=== PATIENT | female | born 1990 | race Caucasian/White ===

== ENCOUNTER 2020-11-12 15:31 | Emergency (ER) | payer OTHER, SELFPAY ==
--- NOTE | ~2020-11-12 | CT_ITS ---
EXAMINATION: CT abdomen pelvis w con DATE: 11/12/2020 18:02 INDICATION: Abdominal pain and diarrhea for 4 weeks TECHNIQUE: Computed tomography (CT) of the abdomen and pelvis was performed with 100 cc Omnipaque 350 intravenous contrast. The dose-length product was 1019.64 mGy-cm. Automated exposure control and ite rative reconstruction technique were employed. COMPARISON: None. FINDINGS: Lung bases are unremarkable. Heart size normal. No significant pleural or pericardial effus ion. No significant vascular abnormality. No lymphadenopathy. Fatty infiltration of the liver. There are cholecystectomy clips. The spleen, pancreas, adrenal gland s and left kidney are unremarkable. There is a 2 mm nonobstructing right renal stone. No lymphadenopa thy. Normal appendix. There is an IUD in the endometrium. No osteolytic or osteoblastic lesions. Nono bstructive bowel gas pattern. Colonic diverticulosis without evidence for diverticulitis. No abnormal pelvic masses or fluid collections. IMPRESSION: 1. No acute abdominal abnormality. 2: Nonobstructing 2 mm right renal stone. 3: Hepatic steatosis. Reviewed, dictated and finalized at location A. [facility] [employer]
[2020-11-12 15:56] VITALS: BP 122/86; PULSE 114; RESP 18; TEMP 36.3; O2SAT 96
[2020-11-12 16:15] LABS: Basophils Absolute Auto 0.1 K/mm3 (0.0-0.1); Basophils Percent Auto 0.7 % (0.2-1.2); Eosinophils Absolute Auto 0.9 K/mm3 (0-0.3); Eosinophils Percent Auto 7.9 % (0-4.4); Hematocrit 45.6 % (37.0-47.0); Hemoglobin 15.3 g/dL (12.0-15.0); Immature Granulocyte Absolute 0.03 K/mm3 (0.00-0.031); Immature Granulocyte Percent A 0.3 % (0-0.5); Lymphocytes Absolute Auto 2.14 K/mm3 (0.9-3.2); Lymphocytes Percent Auto 19.8 % (18.3-44.2); Mean Corpuscular HGB Conc 33.6 g/dl (32-36); Mean Corpuscular Hemoglobin 29.1 pg (26-34); Mean Corpuscular Volume 86.7 fl (80-100); Mean Platelet Volume 10.3 fl (7.4-10.4); Monocytes Absolute Auto 0.4 K/mm3 (0.1-0.6); Monocytes Percent Auto 3.4 % (2.6-8.5); Neutrophils Absolute Auto 7.3 K/mm3 (1.3-6.7); Neutrophils Percent Auto 67.9 % (45.5-73.1); Platelet Count Result 304 k/mm3 (150-375); Red Blood Count 5.26 M/mm3 (4.2-5.4); Red Cell Distribution Width 12.7 % (11.5-14.5); White Blood Count 10.8 K/mm3 (4.5-10.0)
[2020-11-12 16:17] VITALS: BP 136/99; PULSE 109
--- NOTE | 2020-11-12 16:17 | ED.GIBLEED ---
HPI - GI Bleed General Chief complaint: GI Bleed Stated complaint: possible gi bleeding Time Seen by Provider: 11/12/20 16:17 History of Present Illness HPI Narrative: 30 yo female w/ IBS presents to the ED for possible GI bleed. She reports that she has chronic diarrhea that has been worse for the past month. When this started she also began noticing blood in her stools. The bright red blood has stopped, but she now report black stools for the past several days. This is associated with intermittent abdominal pain, which she says moves around her abdomen. She also reports nause, but only before having a bowel movement. SHe tried Imodium without relief. Related Data Home Medications Medication Instructions Recorded Confirmed acyclovir 400 mg PO BID 11/12/20 11/12/20 gabapentin 600 mg PO TID 11/12/20 11/12/20 sertraline [Zoloft] 225 mg PO DAILY 11/12/20 11/12/20 Allergies Allergy/AdvReac Type Severity Reaction Status Date / Time No Known Allergies Allergy Verified 11/12/20 16:02 Review of Systems Review of Systems: All systems reviewed & are unremarkable except as noted in HPI and below Constitutional: Constitutional: Denies chills, Denies fever(s) and Denies weakness ENT: Reports dizziness Cardiovascular: Cardiovascular: Denies chest pain Respiratory: Respiratory: Denies dyspnea Gastrointestinal: Gastrointestinal: Reports abdominal pain, Reports diarrhea, Reports nausea and Denies vomiting Genitourinary: Genitourinary: Denies hematuria and Denies dysuria Neurologic: Reports dizziness, Denies syncope and Denies weakness [facility] Past Medical History Medical History (Updated 11/12/20 @ 18:33 by Jonny Willett MD) IBS (irritable bowel syndrome) Social History Social History (Updated 11/12/20 @ 17:11 by Jonny Willett MD) Smoking status: Never smoker Exam Const: General: healthy appearing, no acute distress and alert Orientation/consciousness: patient oriented x3 HENMT: Head: normal to inspection Neck: Neck: normal visual inspection Resp: Effort & Inspection: normal respiratory effort Auscultation: clear to auscultation bilaterally, no rales, no rhonchi and no wheezes Cardio: Jugular venous distension: no JVD Rate: tachycardic Rhythm: regular rhythm Heart sounds: no murmurs GI: Inspection: non-distended GI Palp: Yes Soft to palpation and No Tenderness to palpation present (GI) Skin: General skin exam: normal color Neuro: General: patient oriented x3 and moves all extremities Speech: normal speech Extrem: General: no edema Psych: Appearance: well kempt Affect: normal affect Course Vital Signs Vital signs: Vital Signs Temperature 36.3 C L 11/12/20 15:56 Pulse Rate 114 H 11/12/20 15:56 Respiratory Rate 18 11/12/20 15:56 Blood Pressure 122/86 11/12/20 15:56 Pulse Oximetry 96 11/12/20 15:56 Temperature 36.3 C L 11/12/20 15:56 Pulse Rate 116 H 11/12/20 16:19 Respiratory Rate 18 11/12/20 15:56 Blood Pressure 125/90 11/12/20 16:19 Pulse Oximetry 96 11/12/20 15:56 MDM - GI Bleed MDM Narrative Medical decision making narrative: Hemoglobin slightly elevated. Most likely due to concentration from dehydration. Significant GI bleed unlikely. Minimal leukocytosis. CT negative for any acute disease process. Differential Diagnosis Differential diagnosis: Likely hemorrhoids, infectious diarrhea, Upper gastrointestinal hemorrhage and Lower gastrointestinal hemorrhage Medical Records Attestation: I reviewed the patient's medical records. Lab Data Attestation: I reviewed the patient's lab results. Result diagrams: 11/12/20 16:05 11/12/20 16:05 Labs: Lab Results 11/12/20 11/12/20 11/12/20 Range/Units 16:05 16:05 16:05 WBC 10.8 H (4.5-10.0) K/mm3 RBC 5.26 (4.2-5.4) M/mm3 Hgb 15.3 H (12.0-15.0) g/dL Hct 45.6 (37.0-47.0) % MCV 86.7 (80-100) fl MCH 29.1 (26-34) pg MCHC 33.6 (32-3
[2020-11-12 16:19] VITALS: BP 125/90; PULSE 116
[2020-11-12 16:27] LABS: Alanine Aminotransferase 32 U/L (4-35); Albumin Level 4.5 g/dL (3.5-5.1); Alkaline Phosphatase 85 U/L (38-126); Anion Gap 13 mmol/L (8-16); Aspartate Amino Transferase 29 U/L (14-36); Bilirubin,Total 0.4 mg/dL (0.2-1.3); Blood Urea Nitrogen 10 mg/dL (7-17); Calcium 9.4 mg/dL (8.4-10.2); Carbon Dioxide 22 mmol/L (22-30); Chloride 103 mmol/L (98-107); Estimated CRCL calculation 105 ml/min; Estimated Glomerular Filt Rate > 60; Glucose 172 mg/dL (65-105); Potassium 3.5 mmol/L (3.4-5.0); Sodium 138 mmol/L (137-145)
[2020-11-12] MEDS: DICYCLOMINE HCL INJ 20 MG/2 ML VIAL IM (17:06)
[2020-11-12] MEDS: SODIUM CHLORIDE 0.9% IV 1,000 ML 999 ML IV CONT (17:08)
[2020-11-12 17:13] LABS: INR 0.9; Prothrombin Time 12.9 Seconds (11.1-14.7)
[2020-11-12 17:16] LABS: Partial Thromboplastin Time 30.6 SECONDS (22.3-36.8)
== END 2020-11-12 18:51 | disposition home or self-care (01) ==
PROVIDERS: Emergency Provider Emergency Medicine; PCP Family Medicine
DX: K58.0 Irritable bowel syndrome with diarrhea (principal); K76.0 Fatty (change of) liver, not elsewhere classified; N20.0 Calculus of kidney; E86.0 Dehydration
CPT/HCPCS: 36415; 74177; 80053; 81025; 85025; 85610; 85730; 86850; 86900; 86901; 96360; 96361; 96372; 99284; J0500; J7030; Q9967